=== PATIENT | female | born 1980 | race American Indian/Alaskan Native ===

== ENCOUNTER 2016-11-23 15:47 | Emergency (ER) | payer OTHER ==
[2016-11-23 17:19] LABS: Basophils % (Auto) 0.8 % (0.0-1.8); Eosinophils % (Auto) 2.5 % (0.0-4.3); Mean Corpuscular HGB Conc 30 % (30-34); Platelet Count 354 K/mm3 (140-440); Red Blood Count 4.89 M/mm3 (3.65-5.03); Red Cell Distribution Width 18.5 % (13.2-15.2); White Blood Count 12.2 K/mm3 (4.5-11.0)
[2016-11-23 17:20] LABS: Hematocrit 32.1 % (30.3-42.9); Hemoglobin 9.6 gm/dl (10.1-14.3); Mean Corpuscular Hemoglobin 20 pg (28-32); Mean Corpuscular Volume 66 fl (79-97)
[2016-11-23 17:37] LABS: Bilirubin,Urine NEG (Negative); Blood,Urine NEG (Negative); Ketones,Urine NEG (Negative); Leukocyte Esterase,Urine NEG (Negative); Mucus,Urine 3+ /HPF; Nitrite,Urine NEG (Negative); Protein,Urine <15 mg/dL mg/dL (Negative)
[2016-11-23 17:40] LABS: Alanine Aminotransferase 12 units/L (7-56); Albumin/Globulin Ratio 1.3 %; Alkaline Phosphatase 59 units/L (35-129); BUN/Creatinine Ratio 11.25; Bilirubin,Total 0.2 mg/dL (0.1-1.2); Blood Urea Nitrogen 9 mg/dL (7-17); Calcium 8.9 mg/dL (8.4-10.2); Carbon Dioxide 26 mmol/L (22-30); Glucose 105 mg/dL (65-100); Lipase 22 units/L (13-60); Total Protein 7.2 g/dL (6.3-8.2)
[2016-11-23 17:41] LABS: Anion Gap 13 mmol/L; Chloride 102.3 mmol/L (98-107); Potassium 3.4 mmol/L (3.6-5.0); Sodium 138 mmol/L (137-145)
--- NOTE | 2016-11-24 00:40 | Emergency Department Report ---
ED Dizziness HPI - General Chief Complaint: Dizziness Stated Complaint: DIZZY/NUMBNESS ON RI SIDE Time Seen by Provider: 11/24/16 00:38 Source: patient Mode of arrival: Ambulatory Limitations: No Limitations - History of Present Illness Initial Comments: Patient reports 2 day history of dizziness. She states that she lays down in bed and stays still she feels fine. She states when she gets up though she feels unsteady. She reports it does bother her as well when she moves her head quickly from physicians in the bed. Sensation of some tingling on her right thigh region. She does not work note to attribute this to. She denies headache associated with this. She has had occasional nausea when she's been moving too quickly. She denies abdominal pain. She denies any focal weakness she denies any difficulty with speech. MD Complaint: dizziness Onset/Timin -: Gradual, days(s) Timing: waxing/waning Description: sense of movement, off-balance History of Same: Yes History of Trauma: No Severity: moderate Improves With: remaining still Worsens With: movement Associated Symptoms: denies other symptoms - Related Data Previous Rx's Medication Instructions Recorded Last Taken Type Meclizine [Antivert] 25 mg PO TID PRN #30 tablet 11/24/16 Unknown Rx Allergies Allergy/AdvReac Type Severity Reaction Status Date / Time No Known Allergies Allergy Verified 11/23/16 16:26 ED Review of Systems ROS: Stated complaint: DIZZY/NUMBNESS ON RI SIDE Other details as noted in HPI Constitutional: denies: chills, fever Eyes: denies: eye pain, eye discharge, vision change ENT: denies: ear pain, throat pain Respiratory: denies: cough, shortness of breath, wheezing Cardiovascular: denies: chest pain, palpitations Endocrine: no symptoms reported Gastrointestinal: denies: abdominal pain, nausea, diarrhea Genitourinary: denies: urgency, dysuria, discharge Musculoskeletal: denies: back pain, joint swelling, arthralgia Skin: denies: rash, lesions Neurological: vertigo. denies: headache, weakness, paresthesias Psychiatric: denies: anxiety, depression Hematological/Lymphatic: denies: easy bleeding, easy bruising ED Past Medical Hx - Past Medical History Previous Medical History?: No - Surgical History Additional Surgical History: x 1. tubal ligation - Social History Smoking Status: Current Every Day Smoker Substance Use Type: Alcohol - Medications Home Medications: Home Medications Medication Instructions Recorded Confirmed Last Taken Type Meclizine [Antivert] 25 mg PO TID PRN #30 tablet 11/24/16 Unknown Rx ED Physical Exam - General Limitations: No Limitations General appearance: alert, other (appear somewhat uncomfortable lying in the bed.) - Head Head exam: Present: atraumatic, normocephalic - Eye Eye exam: Present: normal appearance, PERRL, EOMI. Absent: scleral icterus Pupils: Present: normal accommodation, other (8 beat nystagmus on L. Nml nystagmus on R) - ENT ENT exam: Present: normal exam, normal orophraynx, mucous membranes moist - Neck Neck exam: Present: normal inspection. Absent: tenderness, lymphadenopathy - Respiratory Respiratory exam: Present: normal lung sounds bilaterally. Absent: respiratory distress - Cardiovascular Cardiovascular Exam: Present: regular rate, normal rhythm. Absent: systolic murmur, diastolic murmur, rubs, gallop - GI/Abdominal GI/Abdominal exam: Present: soft, normal bowel sounds - Extremities Exam Extremities exam: Present: normal inspection, full ROM. Absent: tenderness, calf tenderness - Back Exam Back exam: Present: normal inspection - Neurological Exam Neurological exam: Present: alert, oriented X3, CN II-XII intact, normal gait, other (nml sensation throughout. Nml proprioception. Nml light touch.) - Psychiatric Psychiatric exam: Present: normal affect, normal mood - Skin Skin exam: Present: warm, dry, intact, normal color. Absent: rash ED Course Vital Signs 11/23/16 11/23/16 11/24/16 16:20 23:09 00:03 Temperature 98.7 F 98.9 F Pulse Rate 108 H 81 74 Respiratory 19 16 18 Rate Blood Pressure 127/85 Blood Pressure 109/86 133/59 [Left] O2 Sat by Pulse 100 98 100 Oximetry - Reevaluation(s) Reevaluation #1: 11/24/16 01:03 Patient with findings that do seem consistent with peripheral vertigo of the left ear In regards to the right leg paresthesias, they are subjective only. I 'm not able to reproduce them in any way or demonstrate sensory deficit. Labs are noted. Patient is not . She has had similar symptoms in the past. She actually reports her mother having similar symptoms in the past as well. She reports in general she's fairly sedentary. He has no ear pain associated with this. I suspect benign positional vertigo. We'll trial her on medications for this. No concerning features noted safe for home. ED Medical Decision Making - Lab Data Result diagrams: 11/23/16 16:52 11/23/16 16:52 - EKG Data -: EKG Interpreted by Me EKG shows normal: sinus rhythm, axis, intervals, QRS complexes, ST-T waves Rate: normal - EKG Data Interpretation: normal EKG Critical care attestation.: If time is entered above; I have spent that time in minutes in the direct care of this critically ill patient, excluding procedure time. ED Disposition Clinical Impression: Peripheral positional vertigo of left ear Disposition: DISCHARGED TO HOME OR SELFCARE Is pt being admited?: No Does the pt Need Aspirin: No Condition: Stable Additional Instructions: Consider vestibular therapy through ENT if you are not having success with meclizine. Consider doing daily exercises to avoid this in the future. If you look up vestibular therapy exercises on the Internet you can find exercises you can do. Prescriptions: Meclizine [Antivert] 25 mg PO TID PRN #30 tablet PRN Reason: Vertigo Referrals: [facility] [Provider Group] - 3-5 Days JESSE AVILES MD [Staff Physician] - 3-5 Days Forms: Work/School Release Form(ED) Time of Disposition: 00:58
[2016-11-24] MEDS: VALIUM PO ONE (01:02)
[2016-11-24 01:09] VITALS: BP 121/79
== END 2016-11-24 01:10 | disposition home or self-care (01) ==
LOC: ED 15:47
DX: H81.392 Other peripheral vertigo, left ear (principal); F17.200 Nicotine dependence, unspecified, uncomplicated; Z98.51 Tubal ligation status
CPT/HCPCS: 36415; 80053; 81001; 81025; 83690; 85025; 93005; 93010; 99283

== ENCOUNTER 2021-12-02 08:10 | Day surgery (SDC) | payer OTHER ==
[2021-11-30 11:48] LABS: Mean Corpuscular HGB Conc 30 % (30-34); Platelet Count 506 K/mm3 (140-440); Red Blood Count 4.97 M/mm3 (3.65-5.03)
[2021-11-30 12:05] LABS: Hematocrit 32.1 % (30.3-42.9); Hemoglobin 9.6 gm/dl (10.1-14.3); Mean Corpuscular Volume 65 fl (79-97); Red Cell Distribution Width 23.9 % (13.2-15.2)
[2021-11-30 15:13] VITALS: BP 127/71
--- NOTE | 2021-12-02 07:36 | History and Physical Report ---
History of Present Illness Date of examination: 11/30/21 Chief complaint: Dysfunctional Uterine Bleeding, Fibroids History of present illness: Pt is a 40 year old who presents for surgical management of dysfunctional uterine bleeding. She has a h/o uterine fibroids as well. This patient did have an abnormal EKG during a routine PCP visit. She has had a Cardiology consultation which has deemed her cardiac risk for this procedure as low. Past History Past Medical History: hematologic disorders (anemia ) Past Surgical History: section Family/Genetic History: none Social history: no significant social history - Obstetrical History : 3 Para: 3 Hx # Term Pregnancies: 2 Number of Pregnancies: 1 Spontaneous Abortions: 0 Induced : 0 Number of Living Children: 3 Medications and Allergies Allergies Allergy/AdvReac Type Severity Reaction Status Date / Time No Known Allergies Allergy Verified 11/26/21 16:43 Home Medications Medication Instructions Recorded Confirmed Last Taken Type Cholecalciferol (Vitamin D3) 50,000 unit PO QWEEK 11/26/21 11/26/21 Unknown History [Vitamin D3 50,000UNIT CAP] Ferrous Sulfate [Iron 325 MG] 325 mg PO BID 11/26/21 11/26/21 Unknown History Active Meds: Active Medications Acetaminophen (Acetaminophen 500 Mg Tab) 1,000 mg PO PREOP MACKENZIE Lactated Ringer's (Lactated Ringers) 1,000 mls @ 100 mls/hr IV DIRECT MACKENZIE Stop: 12/02/21 23:59 Cefazolin Sodium (Ancef/Sterile Water 2 Gm/20 Ml) 2 gm in 20 mls @ 80 mls/hr IV PREOP NR; Protocol Midazolam HCl (Midazolam 2 Mg/2 Ml Inj) 2 mg IV PREOP MACKENZIE Scopolamine (Scopolamine Transdermal Patch 72 Hr) 1 each TD PREOP NR Stop: 12/02/21 23:01 Review of Systems All systems: negative - Vital Signs Vital signs: Vital Signs Temp Pulse Resp BP Pulse Ox 98.5 F 77 18 127/71 100 11/30/21 11:30 11/30/21 11:30 11/30/21 11:30 11/30/21 11:30 11/30/21 11:30 Temp Pulse Resp BP Pulse Ox 98.5 F 77 18 127/71 100 11/30/21 11:30 11/30/21 11:30 11/30/21 11:30 11/30/21 11:30 11/30/21 11:30 - Physical Exam Breasts: Positive: deferred Cardiovascular: Regular rate Lungs: Positive: Clear to auscultation Abdomen: Positive: soft Extremities: Positive: normal Results Result Diagrams: 11/30/21 11:25 All other labs normal. Assessment and Plan A: Dysfunctional Uterine Bleeding Fibroid Uterus Anemia P: Proceed with exam under anesthesia, hysteroscopy, possible Myosure endometrial sampling, Novasure endometrial ablation and other indicated procedures
[~2021-12-02 08:10] MED LIST: ACETAMINOPHEN 500 MG TAB PO SCH; LACTATED RINGERS 1,000 ML IV SCH; MIDAZOLAM 2 MG/2 ML INJ IV SCH; SCOPOLAMINE TRANSDERMAL PATCH 72 HR TD NR; ceFAZolin/Water 2 GM/20 ML 2 GM/20 ML SYRINGE IV NR
[2021-12-02] MEDS ORDERED: propofoL 200 MG/20 ML VIAL IV ONE (10:14)
[2021-12-02] MEDS ORDERED: HYDROmorphone 1 MG/1 ML INJ ONE (10:14)
[2021-12-02] MEDS ORDERED: LIDOCAINE MPF (2%) 20 MG/1 ML VIAL 5 ML ONE (10:16)
[2021-12-02] MEDS ORDERED: ONDANSETRON 4 MG/2 ML INJ IV PRN (10:23)
[2021-12-02] MEDS ORDERED: HYDROmorphone 1 MG/1 ML INJ IV PRN (10:23)
[2021-12-02] MEDS ORDERED: HYDROcodone/ACETAMINOPHEN 5-325 MG TAB PO PRN (10:23)
--- NOTE | 2021-12-02 10:23 | Anesthesia Day of Surgery ---
Anesthesia Day of Surgery - Day of Surgery Patient Examined: Yes Patient H&P Reviewed: Yes Patient is NPO: Yes
--- NOTE | 2021-12-02 10:23 | Anesthesia Consultation ---
Anesthesia Consult and Med Hx Date of service: 12/02/21 - Airway Anesthetic Teeth Evaluation: Good ROM Head & Neck: Adequate Mental/Hyoid Distance: Adequate Mallampati Class: Class II Intubation Access Assessment: Probably Good - Pre-Operative Health Status ASA Pre-Surgery Classification: ASA2 Proposed Anesthetic Plan: General - Pulmonary Hx Smoking: Yes (10/20 PPD) Hx Respiratory Symptoms: No - Cardiovascular System Hx Hypertension: No - Central Nervous System CVA: No - Endocrine Hx Renal Disease: No Hx Liver Disease: No Hx Insulin Dependent Diabetes: No Hx Non-Insulin Dependent Diabetes: No Hx Thyroid Disease: No - Hematic Hx Anemia: Yes - Additional Comments Anesthesia Medical History Comments: No hx anesthetic complications. Referred to telephone lineworker by PCP for abnormal EKG. Cardiac eval on chart and work up negative.
== END 2021-12-02 08:11 | disposition home or self-care (01) ==
LOC: OR 08:10
PROVIDERS: ATTEND Obstetrics & Gynecology
DX: N93.8 Other specified abnormal uterine and vaginal bleeding (principal); D25.9 Leiomyoma of uterus, unspecified; F17.210 Nicotine dependence, cigarettes, uncomplicated; Z53.8 Procedure and treatment not carried out for other reasons; Z79.899 Other long term (current) drug therapy; Z20.822 Contact with and (suspected) exposure to COVID-19; Z98.891 History of uterine scar from previous surgery; Z72.89 Other problems related to lifestyle; Z98.890 Other specified postprocedural states; Z86.2 Personal history of diseases of the blood and blood-forming organs and certain disorders involving the immune mechanism
CPT/HCPCS: 36415; 84703; 85027; J1170; J7120; U0003; J3490; J2704

== ENCOUNTER 2021-12-08 06:00 | Day surgery (SDC) | payer OTHER ==
[2021-12-08] MEDS ORDERED: LACTATED RINGERS 1,000 ML ONE (06:18)
--- NOTE | 2021-12-08 06:41 | History and Physical Report ---
History of Present Illness Date of examination: 12/02/21 Chief complaint: Dysfunctional Uterine Bleeding History of present illness: Pt is a 41 year old who presents for surgical management of dysfunctional uterine bleeding. She also has a history of uterine fibroids. The patient did have an abnormal EKG during an annual examination with her PCP,and subsequently had a Cardiology evaluation that deemed her low risk for this planned procedure. Past History Past Medical History: hematologic disorders (Anemia ) Past Surgical History: section Family/Genetic History: none Social history: smoking - Obstetrical History : 3 Para: 3 Hx # Term Pregnancies: 2 Number of Pregnancies: 1 Spontaneous Abortions: 0 Induced : 0 Number of Living Children: 3 Medications and Allergies Allergies Allergy/AdvReac Type Severity Reaction Status Date / Time No Known Allergies Allergy Verified 12/07/21 15:57 Home Medications Medication Instructions Recorded Confirmed Last Taken Type Cholecalciferol (Vitamin D3) 50,000 unit PO QWEEK 11/26/21 12/07/21 Unknown History [Vitamin D3 50,000UNIT CAP] Ferrous Sulfate [Iron 325 MG] 325 mg PO BID 11/26/21 12/07/21 Unknown History Active Meds: Active Medications Lactated Ringer's (Lactated Ringers) 1,000 mls @ 75 mls/hr IV DIRECT MACKENZIE Cefazolin Sodium (Ancef/Sterile Water 2 Gm/20 Ml) 2 gm in 20 mls @ 80 mls/hr IV PREOP NR; Protocol Review of Systems All systems: negative - Physical Exam Breasts: Positive: deferred Abdomen: Positive: soft Extremities: Positive: normal Results All other labs normal. Assessment and Plan A: Dysfunctional Uterine Bleeding Fibroid Uterus Abnormal EKG s/p Cardiac Evaluation Tobacco Use P: Proceed with exam under anesthesia, hysteroscopy, possible Myosure endometrial sampling, Novasure endometrial ablation and other indicated procedures
[2021-12-08] MEDS ORDERED: LACTATED RINGERS 1,000 ML IV SCH (06:45)
[2021-12-08] MEDS ORDERED: ceFAZolin/Water 2 GM/20 ML 2 GM/20 ML SYRINGE IV NR (07:00)
--- NOTE | 2021-12-08 07:36 | Anesthesia Consultation ---
Anesthesia Consult and Med Hx Date of service: 12/08/21 - Airway Anesthetic Teeth Evaluation: Good (braces upper and lower) ROM Head & Neck: Adequate Mental/Hyoid Distance: Adequate Mallampati Class: Class II Intubation Access Assessment: Probably Good - Pre-Operative Health Status ASA Pre-Surgery Classification: ASA2 Proposed Anesthetic Plan: General - Pulmonary Hx Smoking: Yes (1/ PPD) Hx Respiratory Symptoms: No - Central Nervous System Hx Psychiatric Problems: No - Endocrine Hx Insulin Dependent Diabetes: No Hx Non-Insulin Dependent Diabetes: No Hx Thyroid Disease: No - Hematic Hx Anemia: Yes - Other Systems Hx Alcohol Use: Yes (Occas) Hx Cancer: No
--- NOTE | 2021-12-08 07:37 | Anesthesia Day of Surgery ---
Anesthesia Day of Surgery - Day of Surgery Patient Examined: Yes Patient H&P Reviewed: Yes Patient is NPO: Yes
[2021-12-08] MEDS ORDERED: dexAMETHasone 20 MG/5 ML VIAL ONE (07:59)
[2021-12-08] MEDS ORDERED: ONDANSETRON 4 MG/2 ML INJ ONE (07:59)
[2021-12-08] MEDS ORDERED: fentaNYL 100 MCG/2 ML INJ ONE (07:59)
[2021-12-08] MEDS ORDERED: LIDOCAINE MPF (2%) 20 MG/1 ML VIAL 5 ML ONE (07:59)
[2021-12-08] MEDS ORDERED: propofoL 200 MG/20 ML VIAL IV ONE (07:59)
[2021-12-08] MEDS ORDERED: FAMOTIDINE 20 MG/2 ML INJ IV NR (08:00)
[2021-12-08] MEDS ORDERED: MIDAZOLAM 2 MG/2 ML INJ IV NR (08:00)
[2021-12-08] MEDS ORDERED: SODIUM CHLORIDE 0.9% IRRIG SOLN 2000 ML IR ONE (08:23)
[2021-12-08] MEDS ORDERED: SODIUM CHLORIDE 0.9% IRR 1,500 ML BOTTLE IR ONE (08:23)
[2021-12-08] MEDS ORDERED: SILVER NITRATE APPLICATOR 1 EA TP ONE (09:02)
[2021-12-08] MEDS ORDERED: KETOROLAC 30 MG/1 ML INJ ONE (09:07)
[2021-12-08] MEDS ORDERED: PHENYLEPHRINE/NS 1,000 MCG/10 ML SYRINGE (OR USE) IV ONE (09:07)
--- NOTE | 2021-12-08 09:19 | Operative Report ---
Operative Report Operative Report: Date of Procedure: December 08, 2021 Preoperative Diagnosis: 1) Dysfunctional Uterine Bleeding 2) Fibroid Uterus 3) Anemia Postoperative Diagnosis: Same Procedure: 1) Hysteroscopy 2) Myosure endometrial sampling 3) Novasure endometrial ablation Surgeon: Sonia Roman MD Findings: 1) Anteverted uterus that sounded to 8 cm 2) Minimal tissue in endometrial cavity visible on hysteroscopy Anesthesia: GETA EBL: 25 mL Deficit: 450 mL Urine output: 200 mL, clear prior to the procedure Specimen: Endometrial curettings to pathology Complications: None. Counts correct x 2 Disposition: Stable to PACU Indication for Procedure: The patient is a 41 year old who presents for surgical management of dys functional uterine bleeding. Operation in detail: After the risks, complications, alternatives and benefits were signed to the patient she gave informed consent for the procedure. She was subsequently taken to the operating room with her IV noted to be running well and placed in the dorsal supine position. SCDs were noted to be in place and functioning. General anesthesia was then induced without difficulty. The patient was then placed in the dorsal lithotomy position and prepped and draped in normal sterile fashion. A timeout was performed. An exam under anesthesia revealed an anteverted uterus. The bladder was then drained with a catheter yielding 200 mL of clear urine. An open sided bivalve speculum was placed into the vagina for adequate visualization of the cervix. A single-tooth tenaculum was placed on the anterior lip of the cervix for traction. The uterus was then gently sounded to 8 cm. The cervix was then serially dilated with Parker dilators to a #19. The hysteroscope was then introduced into the uterine cavity with findings of a thin endometrium. At this time, the Myosure device was introduced to sample the endometrial cavity performed per protocol. Subsequently all instruments were removed from the uterus atraumatically. At this time, attention was turned to the endometrial ablation. The cervical length was then sounded to 4 cm and the uterus was then sounded to 8 cm. The cavity length was then noted to be 4 cm. The disposable NovaSure device was connected to the RF controller. The NovaSure disposable device was deployed to the locked position and noted to fully extend. The device was then placed in the unlocked position. The disposable device was then inserted into the uterine cavity with traction on the tenaculum. The device was then seated per protocol. After moving the device back 0.5 cm, the device was moved superiorly and inferiorly and rotated clockwise and counterclockwise to 45. The cavity width at this time was noted to be 2.5 cm. The cervical collar was then advanced to the cervix. The cavity assessment was then initiated and passed. The ablation procedure was then initiated and lasted for 120 seconds. The cervical collar was moved away from the cervix, the device was moved to the unlocked position, and the disposable NovaSure device was removed from the uterine cavity. At this time the single-tooth tenaculum was removed from the cervix. The tenaculum puncture sites were hemostatic with use of pressure and silver nitrate. All instruments were removed from the vagina and the procedure was ended. The p atient was replaced into the dorsal supine position and extubated without difficulty. She was subsequently taken to the PACU in stable condition. She tolerated the procedure well. All counts were correct 2.
--- NOTE | 2021-12-08 09:20 | Short Stay Summary ---
Short Stay Documentation Date of service: 12/08/21 - History H&P: dictated Social history: smoking - Allergies and Medications Current Medications: Allergies No Known Allergies Allergy (Verified 12/07/21 15:57) Home Medications Medication Instructions Recorded Confirmed Last Taken Type Cholecalciferol (Vitamin D3) 50,000 unit PO QWEEK 11/26/21 12/08/21 12/04/21 09:00 History [Vitamin D3 50,000UNIT CAP] Ferrous Sulfate [Iron 325 MG] 325 mg PO BID 11/26/21 12/08/21 12/07/21 21:00 History Active Medications Famotidine (Famotidine 20 Mg/2 Ml Inj) 20 mg IV PREOP NR Stop: 12/08/21 21:00 Lactated Ringer's (Lactated Ringers) 1,000 mls @ 75 mls/hr IV DIRECT MACKENZIE Last Admin: 12/08/21 07:00 Dose: 75 mls/hr Cefazolin Sodium (Ancef/Sterile Water 2 Gm/20 Ml) 2 gm in 20 mls @ 80 mls/hr IV PREOP NR; Protocol Stop: 12/08/21 23:45 Midazolam HCl (Midazolam 2 Mg/2 Ml Inj) 2 mg IV PREOP NR Stop: 12/08/21 23:59 - Physical exam Breasts: deferred - Brief post op/procedure progress note Date of procedure: 12/08/21 Pre-op diagnosis: Dysfucntional Uterine Bleeding, Fibroids, Anemia Post-op diagnosis: same Procedure: Hysteroscopy, Myosure endometrial sampling, Novasure endometrial ablation Anesthesia: GETA (with LMA ) Findings: 1) Anteverted uterus that sounded to 8 cm 2) Minimal tissue in endometrial cavity visible on hysteroscopy Surgeon: TROY ROMAN Estimated blood loss: minimal (25 mL) Pathology: list (endometrial curettings) Specimen disposition: to lab Condition: stable - Hospital course Hospital course: Patient underwent hysteroscopy, and MyoSure endometrial sampling and NovaSure endometrial ablation which she tolerated well. She was observed in the postanesthesia unit until she met discharge criteria. She will follow-up in the office in [address] Roman. - Disposition Condition at discharge: Stable Disposition: 01 HOME / SELF CARE / HOMELESS - Discharge Diagnoses (1) Dysfunctional uterine bleeding Status: Acute (2) Fibroid uterus Status: Acute Qualifiers: Uterine leiomyoma location: unspecified location Qualified Code(s): D25.9 - Leiomyoma of uterus, unspecified (3) Anemia Status: Acute Qualifiers: Anemia type: unspecified type Qualified Code(s): D64.9 - Anemia, unspecified Short Stay Discharge Plan Activity: other (Nothing in vaginal, no intercourse, no tub baths x 4 wks ) Weight Bearing Status: Full Weight Bearing Diet: regular Follow up with: ISSA DUMONT MD [Primary Care Provider] - 7 Days TROY ROMAN MD [Staff Physician] - 7 Days Prescriptions: Ibuprofen [Motrin 800 MG tab] 800 mg PO Q8HR PRN #30 tablet PRN Reason: Pain, Moderate (4-6) oxyCODONE /ACETAMINOPHEN [Percocet 5/325] 1 tab PO Q6HR PRN #20 tablet PRN Reason: Pain
--- NOTE | 2021-12-08 11:12 | Post Anesthesia Evaluation ---
- Post Anesthesia Evaluation Patient Participated: Yes Airway Patent: Yes Stable Respiratory Function: Yes Nausea/Vomiting: No Temp > 96.8F: Yes Pain Manageable: Yes Adequeate Hydration: Yes Anesthesia Complications: No Block Receding Appropriately: Not Applicable Patient on Ventilator: No
[2021-12-08 13:27] VITALS: BP 131/77
== END 2021-12-08 11:00 | disposition home or self-care (01) ==
LOC: OR 06:00
PROVIDERS: ATTEND Obstetrics & Gynecology
DX: N93.8 Other specified abnormal uterine and vaginal bleeding (principal); D64.9 Anemia, unspecified; D25.9 Leiomyoma of uterus, unspecified; N85.8 Other specified noninflammatory disorders of uterus; F17.210 Nicotine dependence, cigarettes, uncomplicated; Z79.899 Other long term (current) drug therapy; Z98.891 History of uterine scar from previous surgery; Z72.89 Other problems related to lifestyle; Z98.890 Other specified postprocedural states
CPT/HCPCS: 58563; 81025; 88305; C1782; J0690; J1100; J1885; J2250; J2370; J2405; J2704; J3010; J3490; J7120